=== PATIENT | female | born 1975 | race Caucasian/White ===

== ENCOUNTER → 2024-02-07 | Outpatient (CLI) | payer MEDICAID, SELFPAY ==
--- NOTE | 2024-02-07 09:00 | XR_ITS ---
Examination: Screening digital mammography, bilateral Computer aided detection 3-D breast Tomosynthesis, bilateral Date and time of exam: February 07, 2024 0829 hours No priors Indication: Screening Technique: Nonmagnified MLO, CC views of the breasts to been obtained, reconstructed from 3-D Tomosynthesis images. R2 computer aided detection program utilized for evaluation of suspicious masses and/or abnormal calcifications. 3-D Tomosynthesis images obtained. Findings: Scattered areas of fibroglandular density 14 mm focal asymmetry indistinct margins 12:00 position left breast posterior depth Benign calcifications Impression: BI-RADS Category 0: Incomplete: Need additional imaging evaluation 14 mm focal asymmetry indistinct margins 12:00 position left breast, recommend follow-up spot tomographic views of this asymmetry as well as left breast sonography to complete the workup
== END | disposition home or self-care (01) ==
LOC: CDIM 08:23
PROVIDERS: Referring Provider Physician Assistant; Visit Provider Physician Assistant
DX: Z12.31 Encounter for screening mammogram for malignant neoplasm of breast (principal); N64.89 Other specified disorders of breast
CPT/HCPCS: 77063; 77067